=== PATIENT | female | born 1960 | race Caucasian/White ===

== ENCOUNTER 2020-08-09 17:50 | Emergency (ER) | payer MEDICARE, SELFPAY ==
[2020-08-09 17:51] VITALS: BP 187/94; PULSE 92; RESP 18; TEMP 36.4; O2SAT 97; BMI 34.7
--- NOTE | 2020-08-09 18:49 | ED.DCSUM_ITS ---
- ER Visit Summary Date of Service: 08/09/20 Chief Complaint: [Laceration to left middle finger] History of Present Illness: The patient is a 60 F [presents to the emergency department laceration to left middle finger that occurred this evening while she was cutting on a cutting board. Patient states that she cut part of the tip of her finger off with a knife. Patient is right-hand dominant. She is up-to-date on tetanus. She is not on any blood thinners.] Physical Examination: [Left hand-evaluation of the middle finger reveals a superficial skin avulsion of the distal tuft of the finger with no involvement of the nail. There are small amount of active bleeding. She is neurovascular intact.] Test Results: [None indicated] Emergency Department Course and Treatment: [Patient had already irrigated the wound with copious water. I attempted to dry the wound is well as I could. I used Gelfoam over the oozing wound and obtain good hemostasis. Clean dressing was applied.] Treatment Plan: [Follow-up with primary care physician for wound check in 3 to 5 days.] Disposition: [Discharged home in stable condition] Impression: [Left middle finger skin avulsion-Dermabond repair] This note was generated with [employer] dictation software. It may contain incorrect words, spelling, and punctuation that were not noted in review of the chart prior to signing ED Disposition - Plan for ED Patient: Referrals: Marcio Villalobos DO [Primary Care Provider] -
--- NOTE | 2020-08-09 18:51 | ED.DEP ---
ED Disposition - Plan for ED Patient: Instructions: ED AVULSION LACERATION Referrals: Marcio Villalobos DO [Primary Care Provider] - 3-5 Days
== END 2020-08-09 19:14 | disposition home or self-care (01) ==
LOC: ED 19:12
PROVIDERS: Emergency Provider Emergency Medicine; PCP Preventive Medicine Occupational Medicine
DX: S61.213A Laceration without foreign body of left middle finger without damage to nail, initial encounter (principal); W26.0XXA Contact with knife, initial encounter; Y93.G1 Activity, food preparation and clean up; Y92.000 Kitchen of unspecified non-institutional (private) residence as the place of occurrence of the external cause; Y99.8 Other external cause status
CPT/HCPCS: 99282

== ENCOUNTER 2020-09-04 11:30 | Emergency (ER) | payer MEDICARE, SELFPAY ==
[2020-09-04 11:31] VITALS: BP 146/114; PULSE 85; RESP 18; TEMP 36.4; O2SAT 97; BMI 34.0
--- NOTE | 2020-09-04 11:46 | RAD_ITS ---
STUDY: X-RAY - RIGHT KNEE REASON FOR EXAM: Right knee pain and lateral swelling, fall yesterday. TECHNIQUE: 4 view(s) of the knee. COMPARISON: None. FINDINGS: Normal visualized distal femur. There is a nondisplaced fracture of the neck of the fibula. Normal proximal tibiofibular articulation. Normal medial femorotibial compartment. Normal lateral femorotibial compartment. There are small marginal osteophytes without joint space narrowing of the patellofemoral articulation. There is a small joint effusion. RAD/Knee 4 or More Views IMPRESSION: Nondisplaced fracture of the neck of the fibula. Small joint effusion. Electronically Signed: Isaias May MD at 12:23 EST Tel , Service support ,
--- NOTE | 2020-09-04 11:46 | RAD_ITS ---
STUDY: X-RAY - RIGHT ANKLE REASON FOR EXAM: Increased pain and swelling at lateral ankle, fall yesterday. TECHNIQUE: 3 view(s) of the ankle. COMPARISON: None. 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 There is a small fibroxanthoma in the medial aspect of the distal fibular diametaphysis. Normal medial and lateral malleoli. Normal tibiotalar articulation and ankle mortise. There is a plantar calcaneal enthesophyte. The visualized subtalar, talonavicular, calcaneocuboid and tarsal articulations are normal. There is soft tissue swelling overlying the lateral malleolus. RAD/Ankle min 3 Views IMPRESSION: Soft tissue swelling. 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 Plantar calcaneal enthesophyte. No demonstrated fracture. Electronically Signed: Isaias May MD at 12:19 EST Tel , Service support ,
--- NOTE | 2020-09-04 12:42 | ED.VIS.INJ ---
History of Present Illness Chief Complaint: Lower Extremity Injury Informant: Patient Onset: Yesterday Mechanism/Context: Blunt Injury, Fall Quality of Pain: Dull, Aching, Throbbing Location: Right ankle and right knee Current Severity: Mild Maximum Severity: Severe Worsened by: Unable to bear weight Relieved by: Nothing Associated Symptoms: Loss of function, Inability to ambulate. Negative for: Parasthesias, Weakness, Loss of consciousness, Amnesia Narrative: Patient is 60-year-old woman who lost her balance. She fell backwards twisting her knee. She complains of pain over the knee and right ankle. She is unable to bear weight. She denies head trauma. Denies loss of conscious. Denies neck pain. She denies paresthesia, anesthesia or motor weakness. She is not on anticoagulant. She denies hip pain. She denies low back pain. Tetanus Immunization: 5-10 years Prior similar symptoms: No Recent Illness/Hospitalization: No - Past Medical History (1) Diabetes mellitus type 2 in nonobese Status: Chronic (2) Hyperlipidemia Status: Chronic (3) Migraine Status: Chronic Past Medical History - Allergies and Home Meds Allergies/Adverse Reactions: Allergies No Known Allergies Allergy (Verified 09/04/20 11:36) Primary Care Physician: Marcio Villalobos DO [Primary Care Provider] - Prior records reviewed: Yes Surgical History: - - History of hysterectomy 2 C-sections fracture left ankle Lives: Alone Smoking Status: Former smoker Alcohol: Rare Drugs: None Review of Systems General: Denies: Chills, Fever, Malaise, Subjective Eyes: Denies: Visual changes - bilaterally, Blurred Vision - bilaterally Cardiovascular: Denies: Chest pain Respiratory: Denies: Dyspnea Gastrointestinal: Denies: Nausea, Vomiting Genitourinary: Denies: Dysuria, Hematuria, Frequency Musculoskeletal: Reports: Swelling, Extremity Pain. Denies: Myalgias, Arthralgias, Neck pain, Back pain Skin: Denies: Rash, Wounds Neurological: Denies: Weakness, Parasthesia Hematologic: Denies: Easy bruising, Easy bleeding Physical Exam Vital Signs/Narrative: Vital Signs Temp Pulse Resp BP Pulse Ox 09/04/20 11:31 97.6 F L 85 18 146/114 H 97 Inital Vital Signs reviewed: Yes General: Well nourished, Well developed, Obese Head: Normocephalic, Atraumatic Eyes: Perrl, EOMI. Negative for: Pale conjunctiva, Scleral icterus Cardiovascular: Regular rate, Regular rhythm Respiratory: No distress Abdomen: Soft, Nontender, Nondistended, Normal bowel sounds, - - No pain to palpation of pelvis. Rectal: Deferred Back: Nontender Extremeties: There is soft tissue swelling with pain to palpation lateral and medial joint line. Varus and valgus stress testing causes pain laterally without laxity. She does have pain the patient over the fibular head. The patella is not ballotable. There may be a small effusion. Brandon's test was negative. Modified Hai's test was negative. The ankle was swollen. The pain placed over the lateral malleolus and over the anterior talofibular ligament. Is no pain ovation over the medial malleolus or deltoid ligament. No laxity with drawer testing. DP pulses palpable. Skin: Normal color, Trauma Neurological: Alert, Oriented x3, Cranial nerves II-XII grossly intact, Normal Strength, Normal Sensation. Negative for: Normal Gait - Glascow Coma Scale Eye Opening: Spontaneous Motor: Obeys Commands Verbal: Oriented Coma Scale Total: 15 Diagnostic/Tx/Re-eval Chest X-Ray - ED: Read by ED Physician Three-view x-ray of the right ankle reveals lateral soft tissue swelling. There is no evidence of fracture, subluxation or dislocation. There is no widening of the mortise. There is no fracture of the base of the fifth metatarsal. 4 view x-ray of the knee reveals a nondisplaced fracture of the neck of the fibula. There is no other abnormality noted. There is no obvious effusion. Patella is in proper position. There is no fracture of the tibial spines. - Medical Decision Making We will obtain x-ray of the ankle and knee to rule out sprain versus fracture and contusion versus fracture. Procedures - Lower Extremity Splints Lower Extremity Splint: Orthoglass, - - Posterior short leg Splint Fabrication: Fabricated ED Disposition - Plan for ED Patient: Disposition: Home or Assisted Living Diagnosis: Fracture of neck of right fibula, Sprain of anterior talofibular ligament of right ankle Instructions: ED Fracture Lower Extremity Referrals: Marcio Villalobos DO [Primary Care Provider] - Keaton Sosa DO [STAFF PHYSICIAN] - 3-5 Days Additional Instructions: Call office to be seen either tomorrow or Thursday. Nonweightbearing
[2020-09-04 12:53] VITALS: BP 153/87; PULSE 81; RESP 18; TEMP 36.6; O2SAT 96
--- NOTE | 2020-09-04 13:03 | RAD_ITS ---
STUDY: X-RAY - RIGHT ANKLE REASON FOR EXAM: Right ankle injury with right ankle pain and swelling, stress views to evaluate for syndesmotic disruption. TECHNIQUE: 5 radiographs of the ankle. COMPARISON: Earlier radiographs the same day. FINDINGS: There are fibroxanthomas in the distal tibia and distal fibula as previously described. Normal medial and lateral malleoli. Normal tibiotalar articulation and ankle mortise. There is no widening of the ankle mortise on stress views. There is soft tissue swelling overlying the lateral malleolus. RAD/Ankle min 3 Views IMPRESSION: No demonstrated widening of the ankle mortise on stress views. Electronically Signed: Isaias aMy MD at 14:07 EST Tel , Service support ,
[2020-09-04] MEDS: HYDROcodone Bitartrate/Apap 5/325 Tablet PO (13:53)
[2020-09-04 16:05] VITALS: BP 108/64; PULSE 73; RESP 18; O2SAT 96
== END 2020-09-04 16:06 | disposition home or self-care (01) ==
PROVIDERS: Emergency Provider Emergency Medicine; PCP Preventive Medicine Occupational Medicine
DX: S82.491A Other fracture of shaft of right fibula, initial encounter for closed fracture (principal); S93.491A Sprain of other ligament of right ankle, initial encounter; E11.9 Type 2 diabetes mellitus without complications; E78.5 Hyperlipidemia, unspecified; E66.9 Obesity, unspecified; Z79.84 Long term (current) use of oral hypoglycemic drugs; Z79.899 Other long term (current) drug therapy; Z87.891 Personal history of nicotine dependence; W18.30XA Fall on same level, unspecified, initial encounter; Y93.89 Activity, other specified; Y92.89 Other specified places as the place of occurrence of the external cause; Y99.8 Other external cause status
CPT/HCPCS: 29515; 73564; 73610; 99282

== ENCOUNTER → 2020-09-22 08:13 | Outpatient (CLI) | payer MEDICARE, SELFPAY ==
[2020-09-04 11:31] VITALS: BMI 34.0
--- NOTE | 2020-09-22 08:15 | MRI_ITS ---
STUDY: MRI LOWER EXTREMITY RIGHT TIBIA/FIBULA WITH AND WITHOUT CONTRAST REASON FOR EXAM: Female, 60 years old. eval for tumor/cyst, pain f/u to abnormal xray TECHNIQUE: Standardized fat and water weighted pulse sequences were obtained in all 3 orthogonal planes, post contrast administration. IV 18cc Dotarem was administered for the contrast portion of the examination. COMPARISON: X-ray September 04, 2020 FINDINGS: Marrow edema of the posterior medial and lateral tibial plateau. Marrow edema and enhancement of the proximal fibula with nondisplaced fracture at the neck of the fibula. There is adjacent muscular edema and soft tissue swelling. 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 There is marrow edema of the distal tibia adjacent to the tibiofibular syndesmosis. There is marrow edema of the medial and lateral talar dome. Normal posterior calf compartments, with normal muscles, crural fascia and intermuscular septa. There is tendinosis with partial split tear of the peroneal brevis, series 6 image 32/36 and 33/36. There are joint effusions at the knee and ankle. There is no solid, cystic or lipomatous mass lesion of the subcutis adipose space. MRI/Lower Ext No Joint W/WO Cont IMPRESSION: Fracture of the proximal fibula. Bone bruising of the proximal and distal tibia and talar dome. 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 Joint effusions of the knee and ankle. Electronically Signed: Ramakrishna Hamilton MD at 11:51 EST , Service support ,
--- NOTE | 2020-09-22 08:19 | MRI_ITS ---
STUDY: MRI RIGHT KNEE REASON FOR EXAM: Female, 60 years old. Recent injury. Pain and swelling. TECHNIQUE: Standardized fat and water weighted pulse sequences were obtained in all 3 orthogonal planes. COMPARISON: X-ray September 04, 2020 FINDINGS: Marrow edema of the posterior medial and lateral tibial plateau. Marrow edema of the proximal fibula with nondisplaced fracture at the neck of the fibula. There is adjacent muscular edema and soft tissue swelling. Normal medial meniscus. Normal hyaline cartilage of the medial femorotibial compartment. Normal medial femoral condyle. Normal medial collateral ligamentous complex (MCL). Normal distal semimembranosus, gracilis and semitendinosus tendons. Normal lateral meniscus. Normal hyaline cartilage of the lateral femorotibial compartment. Normal lateral femoral condyle. Normal proximal tibiofibular articulation. Normal lateral collateral (fibular) ligament. Normal popliteus tendon. Normal biceps femoris tendon. Normal anterior cruciate ligament (ACL). Normal posterior cruciate ligament (PCL). There is arthrosis of the patellofemoral articulation. There is diffuse, greater than 50% thickness articular cartilage loss of the patellofemoral compartment. Normal medial and lateral patellar retinaculum. Normal quadriceps tendon. Normal patellar tendon. Normal Hoffa''s fat pad. There is a moderate volume joint effusion. The soft tissues are unremarkable. The otherwise visualized osseous structures are unremarkable. MRI/Lower Ext Joint Only (Routine) IMPRESSION: Fibula fracture. Bone bruising of the proximal tibia. No ligamentous or meniscal tear. Patellofemoral degenerative change. Joint effusion. Electronically Signed: Ramakrishna Hamilton MD at 11:14 EST , Service support ,
[2020-09-22 13:56] LABS: EGFR FINGERSTICK > 60.0000 mL/min (>60)
== END ==
PROVIDERS: PCP Preventive Medicine Occupational Medicine; Referring Provider Orthopaedic Surgery; Visit Provider Orthopaedic Surgery
DX: S93.439A Sprain of tibiofibular ligament of unspecified ankle, initial encounter (principal); M23.91 Unspecified internal derangement of right knee
CPT/HCPCS: 73720; 73721; A9575

== ENCOUNTER → 2021-06-05 | Outpatient (CLI) | payer MEDICARE, SELFPAY ==
[2021-06-05 16:45] LABS: Pathologist Comment May follow
[2021-06-05 18:52] LABS: Synovial Fld Mononuclear WBC % 9.1 %; Synovial Fld Polynuclear WBC # 6.067 10^3/uL; Synovial Fld Polynuclear WBC % 90.9 %
[2021-06-05 18:54] LABS: RBC /Synovial Fluid 0.007 10^6/uL (0)
[2021-06-05 20:00] LABS: AUTO B FLUID DILUENT BKGD CT WBC <0.1 RBC <0.01 (W<.1,R<.01)
[2021-06-05 20:01] LABS: Source- Body Fluid SYNOVIAL
[2021-06-05 20:02] LABS: Appearance /Synovial Fluid Turbid (CLEAR); Color / Synovial Fluid Straw (Pale Yellow)
[2021-06-05 20:33] LABS: Body Fluid QC Type(s) BF2Q,BF3Q; Monocyte /Synovial Fluid 5 %; Neutrophil 95 % (0-25)
[2021-06-06 11:44] LABS: Pathologist Review Reviewed
[2021-06-07 21:10] LABS: GLUCOSE, SYNOVIAL FLUID 96 mg/dL (.); PROTEIN, SYNOVIAL FLUID 4.7 g/dL (.)
== END | disposition home or self-care (01) ==
PROVIDERS: Visit Provider Orthopaedic Surgery
DX: E11.9 Type 2 diabetes mellitus without complications (principal); M25.461 Effusion, right knee
CPT/HCPCS: 82945; 84157; 87070; 87075; 87205; 89050; 89051; 89060

== ENCOUNTER → 2021-10-16 15:13 | Outpatient (CLI) | payer MEDICARE, SELFPAY ==
[2021-10-16 16:37] LABS: Absolute Lymphocyte Count 2.08 X10^3/uL (0.83-4.51); Absolute Neutrophil Count 7.7 X10^3/uL (2.0-7.7); Basophil# 0.05 X10^3/uL; Basophil% 0.5 % (0-1); Eosinophil# 0.11 X10^3/uL; Hemoglobin 14.9 g/dL (12.0-15.0); Lymphocyte # 2.08 X10^3/ul (0.83-4.51); Lymphocyte % 19.7 % (19-41); Mean Corp Hgb Conc 33.1 g/dL (32-36); Mean Corpuscular Hgb 29.8 pg (27.0-32.0); Monocyte# 0.66 X10^3/uL; Monocyte% 6.2 % (0-10); NRBC Flagged by Analyzer 0 % (0-5); Neutrophil # 7.65 X10^3/uL (2.7-7.7); Neutrophil % 72.3 % (47-70); Platelet Count 298 K/mm3 (150-450); RBC Distribution Width CV 13.2 % (11.6-14.6); RBC Distribution Width SD 43.6 fl (35.1-43.9); White Blood Count 10.6 K/mm3 (4.4-11.0)
[2021-10-16 16:50] LABS: Erythrocyte Sedimentation Rate 21 mm/hr (0-30)
== END ==
PROVIDERS: PCP Preventive Medicine Occupational Medicine; Visit Provider Physician Assistant
DX: M94.261 Chondromalacia, right knee (principal); M17.11 Unilateral primary osteoarthritis, right knee
CPT/HCPCS: 36415; 85025; 85652; 86140

== ENCOUNTER 2021-11-06 14:54 | Outpatient (CLI) | payer MEDICARE, SELFPAY ==
[2021-11-06 18:09] LABS: Absolute Lymphocyte Count 2.24 X10^3/uL (0.83-4.51); Absolute Neutrophil Count 7.5 X10^3/uL (2.0-7.7); Basophil# 0.07 X10^3/uL; Basophil% 0.6 % (0-1); Eosinophil# 0.09 X10^3/uL; Eosinophils% 0.8 % (0-5); Hemoglobin 14.4 g/dL (12.0-15.0); Lymphocyte # 2.24 X10^3/ul (0.83-4.51); Lymphocyte % 20.7 % (19-41); Mean Corpuscular Hgb 28.7 pg (27.0-32.0); Mean Corpuscular Volume 89.6 fL (81-99); Mean Platelet Vol. 10.1 fl (6.2-12.0); Monocyte# 0.87 X10^3/uL; NRBC Flagged by Analyzer 0 % (0-5); Neutrophil # 7.53 X10^3/uL (2.7-7.7); Neutrophil % 69.5 % (47-70); Platelet Count 340 K/mm3 (150-450); RBC Distribution Width CV 13.2 % (11.6-14.6); RBC Distribution Width SD 43.1 fl (35.1-43.9); Red Blood Count 5.02 M/mm3 (4.2-5.4); White Blood Count 10.8 K/mm3 (4.4-11.0)
[2021-11-06 18:26] LABS: Erythrocyte Sedimentation Rate 28 mm/hr (0-30)
[2021-11-06 18:33] LABS: Rheumatoid Factor < 10.0 IU/mL (<15); Uric Acid 2.9 mg/dL (2.6-6.0)
[2021-11-08 19:53] LABS: ANTINUCLEAR ANTIBODIES DIRECT Negative (Negative)
== END 2021-11-06 23:59 | disposition short-term general hospital (02) ==
LOC: MTLAB 14:55
PROVIDERS: PCP Preventive Medicine Occupational Medicine; Referring Provider Orthopaedic Surgery; Visit Provider Orthopaedic Surgery
DX: M17.11 Unilateral primary osteoarthritis, right knee (principal)
CPT/HCPCS: 36415; 84550; 85025; 85652; 86038; 86140; 86431

== ENCOUNTER → 2022-12-17 | Outpatient (CLI) | payer MEDICARE, SELFPAY ==
[2022-12-17 15:15] LABS: Pathologist Comment May follow
[2022-12-17 20:13] LABS: AUTO B FLUID DILUENT BKGD CT WBC <0.1 RBC <0.01 (W<.1,R<.01); CRYSTALS, BODY FLUID NO CRYSTALS SEEN; Monocyte /Synovial Fluid 11 %; Neutrophil 89 % (0-25)
[2022-12-17 20:14] LABS: Appearance /Synovial Fluid Cloudy (CLEAR); Color / Synovial Fluid Yellow (Pale Yellow); Source- Body Fluid SYNOVIAL
[2022-12-17 20:19] LABS: RBC /Synovial Fluid 244 /mm3 (0)
[2022-12-17 20:21] LABS: Synovial Fld Mononuclear WBC # 4.264 10^3/ul; Synovial Fld Mononuclear WBC % 0.5 %; Synovial Fld Polynuclear WBC # 30.712 10^3/uL; Synovial Fld Polynuclear WBC % 87.9 %
[2022-12-17 20:22] LABS: Body Fluid QC Type(s) BF1Q
[2022-12-18 12:48] LABS: Pathologist Review Reviewed
== END | disposition home or self-care (01) ==
LOC: LABSPEC 15:09
PROVIDERS: PCP Preventive Medicine Occupational Medicine; Visit Provider Orthopaedic Surgery
DX: M17.11 Unilateral primary osteoarthritis, right knee (principal); M25.461 Effusion, right knee
CPT/HCPCS: 87015; 87070; 87075; 87101; 87116; 87205; 87206; 89050; 89051; 89060

== ENCOUNTER 2023-03-13 07:57 | Emergency (ER) | payer MEDICARE, SELFPAY ==
[2023-03-13 07:58] VITALS: BP 162/95; PULSE 99; RESP 16; TEMP 36.4; O2SAT 97; BMI 34.0
[2023-03-13 08:00] VITALS: BP 117/64; PULSE 75; RESP 16; O2SAT 96
--- NOTE | 2023-03-13 08:47 | EKG12_ITS ---
Test Reason : BACK PAIN Blood Pressure : / mmHG Vent. Rate : 071 BPM Atrial Rate : 241 BPM P-R Int : 000 ms QRS Dur : 076 ms QT Int : 396 ms P-R-T Axes : 000 051 058 degrees QTc Int : 430 ms Normal sinus rhythm Low voltage QRS Borderline ECG Confirmed by BARBARA PALMER, CHRISTIN ([id number]), supervising editor news reel LALO CHAN ([id number]) on 03/17/2023 10:31:46 AM Referred By: Confirmed By:CHRISTIN JIMENEZ MD
--- NOTE | 2023-03-13 08:47 | RAD_ITS ---
STUDY: X-RAY CHEST REASON FOR EXAM: Female, 62 years old. Chest pain TECHNIQUE: Frontal (inspiratory and expiratory) and lateral views of the chest COMPARISON: None. FINDINGS: The lungs are clear. There are no pleural effusions. There is no pneumothorax. The heart is normal in size. The visualized osseous structures are within normal limits. RAD/Chest 3 View IMPRESSION: Negative. Electronically Signed: Geremias Kelley MD at 9:37 EDT ,
--- NOTE | 2023-03-13 10:12 | EDS_ITS ---
HPI History of Present Illness Chief Complaint: Other, Pain/Inj Narrative Narrative: Patient is a 62-year-old female who is presenting to the ER with chief complaint of right lower thoracic pain that started Thursday morning. Patient does not recall Thursday is doing any type of heavy lifting, twisting or turning. Patient has no anterior chest pain or tightness or pressure. Patient has no shortness of breath, she does have pain with deep inspiration, trunk twisting, turning or rotation. Patient has no abdominal pain, nausea or vomiting. Patient quit smoking 1 month ago, patient was less than a pack a day smoker for approximately 35 years. No recent traveling. Patient has been having chronic right knee pain. Patient is still mobile at home, she has not been significantly sedentary for the past several weeks or months, but her range of motion and gait is limited secondary right knee pain. Patient has been seeing orthopedic surgery and has had several different joint effusions drained and cortisone injections placed by orthopedic surgeons. Patient has no redness to the right knee, no new swelling. No unilateral swelling to bilateral lower extremities. Patient has no other PE risk factors. Patient has been using heat last couple days, she has taken nothing for pain for her right lower back, she intermittently will take an NSAID for her right knee pain. No other acute complaints at this time [facility] Medical History (Updated 03/13/23 @ 10:[address] Desean Cortes DO) Diabetes hx of left lower leg surgery Hypercholesteremia Home Medications alprazolam 0.25 mg tablet 1 mg PO 4X/DAY PRN 09/26/20 [History Last Taken Unknown] atorvastatin 40 mg tablet 40 mg PO DAILY 09/26/20 [History Last Taken Unknown] eepccnyvpx-zabzzreaqdzks-suvwnmwv 50 mg-325 mg-40 mg tablet 1 tab PO PRN 09/26/20 [History Last Taken Unknown] metformin 1,000 mg tablet 500 mg PO BIDCM 09/26/20 [History Last Taken Unknown] simvastatin 40 mg tablet mg PO 09/26/20 [History Last Taken Unknown] sumatriptan succinate 25 mg tablet 25 mg PO PRN 09/26/20 [History Last Taken Unknown] indomethacin 50 mg capsule 50 mg PO TID PRN knee pain #30 caps 06/05/21 [Rx Last Taken Unknown] promethazine 25 mg tablet 25 mg PO Q6H PRN PRN Nausea 06/07/21 [History Last Taken Unknown] methocarbamol 500 mg tablet 500 mg PO Q8H PRN muscle pain #10 tabs 03/13/23 [Rx Last Taken Unknown] Allergy/AdvReac Type Severity Reaction Status Date / Time No Known Allergies Allergy Verified 03/13/23 08:00 Social History Smoking Status: Never smoker ROS ROS ED ROS Narrative REVIEW OF SYSTEMS: Unless otherwise stated in this report the patient's positive and negative responses for review of systems for constitutional, eyes, ENT, card iovascular, respiratory, gastrointestinal, neurological, , musculoskeletal, and integument systems and related systems to the presenting problem are either stated in the history of present illness or were not pertinent or were negative for the symptoms and/or complaints related to the presenting medical problem. EXAM Physical Exam Narrative Exam Narrative: Vital signs reviewed and patient is not hypoxic. General: The patient appears well and in no apparent distress. Patient is resting comfortably on cart. Not toxic, lethargic, or listless. Skin: Warm, dry, no pallor noted. There is no rash noted. Head: Normocephalic, atraumatic Eye: Normal conjunctiva, no drainage, EOMI. PERRL. Ears, Nose, Mouth, and Throat: oral mucosa is moist. Nares patent. Mouth without vesicles. Cardiovascular: Regular Rate and Rhythm, no murmurs, gallops, or rubs. Respiratory: Patient is in no distress, no accessory muscle use, lungs are clear to auscultation, no wheezing, rales or rhonchi Back: Patient has very reproducible moderate to severe tenderness palpation to the right lower anterior parathoracic area, no rash; along approximately T10- T12. No crepitus. Equal chest rise bilateral. No rash. Patient feels the pain is superficial right we are pushing on the soft tissue above the ribs. Patient has no midline thoracic tenderness palpation, no lateral chest wall tenderness palpation. Deep palpation to right anterior chest wall, does not hurt the right posterior chest wall. Equal breath sounds bilateral. Otherwise non-tender, no CVA tenderness bilaterally to percussion. NO CTLS midline or paraspinal tenderness to palpation. GI: Soft, no tenderness to palpation, no masses appreciated. No rebound, guarding, or rigidity noted. Musculoskeletal: The patient has full range of motion of all extremities and joints with no difficulty. Patient has no motor, no sensory deficits. Neurological: A&O x4, normal speech, no focal neurological deficits. Psychiatric: Cooperative Const Vital Signs: 03/13/23 07:58 03/13/23 08:00 03/13/23 08:00 Temperature 97.6 F L Temperature Source Temporal Pulse Rate 99 75 Respiratory Rate 16 16 Respiratory Effort Normal Non-Labored Respiratory Pattern Normal Blood Pressure 162/95 H 117/64 Blood Pressure Mean 117 81 Pulse Ox 97 96 Oxygen Delivery Method Room Air Room Air MDM MDM MDM Narrative Medical decision making narrative: Patient EKG shows no acute findings. Patient had a lateral and PA chest x-ray done with inspiratory expiratory films. Patient has no signs of pneumothorax. No effusion, no pneumonia, no acute findings. Patient will follow-up with PCP for additional testing or physical therapy if needed. Education was to not use anymore heat, start using ice, alternate Tylenol and anti-inflammatories. Patient is aware this could hurt for 2 or 3 weeks, any other acute changes return back to the ER. Education PE was discussed at bedside, patient starts having more pain, increasing shortness of breath, especially with exertion, patient will return to the ER for further evaluation. Patient understands this very clearly, no questions at discharge Radiography Diagnostic Testing: Clinical Impression(s) from Imaging Studies Chest X-Ray 03/13/23 08:47 IMPRESSION: Negative. Electronically Signed: Geremias Kelley MD at 9:37 EDT Reading Location ID and State: [facility] / MD Tel , Service support , EKG Initial EKG: Attestation: I personally reviewed and interpreted this EKG as follows: Comments: EKG interpretation. Baseline normal sinus rhythm at 71 beats a minute. Normal axis deviation. No acute ST elevation, no acute ectopy. QTc of 430. Possible sinus arrhythmia. Discharge Plan Triage Chief Complaint: Other, Pain/Inj ED Provider: Desean Cortes Dx/Rx/DC Orders Clinical Impression: Right-sided thoracic back pain Instructions: ED Back Care Tips, ED Back Pain (Acute or Chronic), ED Back Contusion, ED Back and Neck Pain, General Prescriptions: New methocarbamol 500 mg tablet 500 mg PO Q8H PRN (Reason: muscle pain) Qty: 10 0RF No Action simvastatin 40 mg tablet PO sumatriptan succinate 25 mg tablet 25 mg PO PRN Label Comments: TAKE 1 TABLET with onset of headache may repeat in 2 (TWO) hours NEEDED rjnmbdqiro-asndfyeponzzl-attd 50-325-40 mg tablet 1 tab PO PRN indomethacin 50 mg capsule 50 mg PO TID PRN (Reason: knee pain) Qty: 30 0RF Rx Instructions: administer with food or milk, do not take in conjuction with any other NSAID including diclofenac or Mobic . Tylenol is ok. atorvastatin 40 mg tablet 40 mg PO DAILY Label Comments: cholesterol metformin 1,000 mg tablet 500 mg PO BIDCM promethazine 25 mg tablet 25 mg PO Q6H PRN PRN (Reason: Nausea) alprazolam 0.25 mg tablet 1 mg PO 4X/DAY PRN Primary Care Provider: Marcio Villalobos Referrals: Marcio Villalobos DO [Primary Care Provider] - Activity Restrictions/Additional Instructions: Ice 20 minutes on, 20 minutes off. Do not use heat. Alternate Tylenol and anti-inflammatories as needed for pain. Stretching exercises as shown at bedside 3 times a day for your lower thoracic spine. If pain worsens, extreme shortness of breath from 1 room to another, significant chest pain, or any other acute concerns, return to the ER Disposition Disposition: Home, Self Care
[2023-03-13 10:16] VITALS: BP 116/59; PULSE 71
== END 2023-03-13 10:23 | disposition home or self-care (01) ==
PROVIDERS: Emergency Provider Emergency Medicine; PCP Preventive Medicine Occupational Medicine; Visit Provider Emergency Medicine
DX: M54.6 Pain in thoracic spine (principal); E11.9 Type 2 diabetes mellitus without complications; M25.561 Pain in right knee; E78.00 Pure hypercholesterolemia, unspecified; G89.29 Other chronic pain; Z87.891 Personal history of nicotine dependence
CPT/HCPCS: 71047; 93005; 99282

== ENCOUNTER → 2023-06-25 | Outpatient (CLI) | payer MEDICARE, SELFPAY ==
[2023-06-25 15:21] LABS: Absolute Lymphocyte Count 2.59 X10^3/uL (0.83-4.51); Absolute Neutrophil Count 8.3 X10^3/uL (2.0-7.7); Basophil# 0.05 X10^3/uL; Basophil% 0.4 % (0-1); Eosinophil# 0.09 X10^3/uL; Eosinophils% 0.8 % (0-5); Hematocrit 46.2 % (37-47); Hemoglobin 15.2 g/dL (12.0-15.0); Lymphocyte # 2.59 X10^3/ul (0.83-4.51); Lymphocyte % 21.8 % (19-41); Mean Corp Hgb Conc 32.9 g/dL (32-36); Mean Corpuscular Hgb 30.5 pg (27.0-32.0); Mean Corpuscular Volume 92.6 fL (81-99); Monocyte# 0.81 X10^3/uL; Monocyte% 6.8 % (0-10); NRBC Flagged by Analyzer 0 % (0-5); Neutrophil # 8.31 X10^3/uL (2.7-7.7); Neutrophil % 69.9 % (47-70); Platelet Count 329 K/mm3 (150-450); RBC Distribution Width SD 47.4 fl (35.1-43.9); Red Blood Count 4.99 M/mm3 (4.2-5.4); White Blood Count 11.9 K/mm3 (4.4-11.0)
[2023-06-25 15:28] LABS: Erythrocyte Sedimentation Rate 23 mm/hr (0-30)
[2023-06-25 16:08] LABS: Synovial Fld Mononuclear WBC # 3.177 10^3/ul; Synovial Fld Mononuclear WBC % 10.8 %; Synovial Fld Polynuclear WBC % 89.2 %
[2023-06-25 16:21] LABS: RBC /Synovial Fluid 0.008 10^6/uL (0)
[2023-06-25 17:07] LABS: AUTO B FLUID DILUENT BKGD CT WBC <0.1 RBC <0.01 (W<.1,R<.01); CRYSTALS, BODY FLUID NO CRYSTALS SEEN; Lymph 1 %; Monocyte /Synovial Fluid 4 %; Neutrophil 95 % (0-25)
[2023-06-25 17:14] LABS: Source- Body Fluid SYNOVIAL
[2023-06-25 17:15] LABS: Appearance /Synovial Fluid Cloudy (CLEAR); Body Fluid QC Type(s) BF1Q,BF2Q; Color / Synovial Fluid Yellow (Pale Yellow)
[2023-06-26 13:21] LABS: Pathologist Review Reviewed
[2023-06-26 13:22] LABS: Pathologist Comment Reviewed
== END | disposition home or self-care (01) ==
LOC: LAB 15:02
PROVIDERS: PCP Preventive Medicine Occupational Medicine; Referring Provider Orthopaedic Surgery; Visit Provider Orthopaedic Surgery
DX: M17.11 Unilateral primary osteoarthritis, right knee (principal); M25.461 Effusion, right knee
CPT/HCPCS: 36415; 85025; 85652; 86140; 87015; 87070; 87075; 87101; 87116; 87205; 87206; 89050; 89051; 89060

== ENCOUNTER 2024-08-24 09:57 | Emergency (ER) | payer MEDICARE, SELFPAY ==
[2024-08-24 09:57] VITALS: BP 153/118; PULSE 66; RESP 18; TEMP 36.4; O2SAT 100; BMI 32.5
[2024-08-24 10:35] LABS: Absolute Lymphocyte Count 1.99 X10^3/uL (0.83-4.51); Absolute Neutrophil Count 6.8 X10^3/uL (2.0-7.7); Basophil# 0.06 X10^3/uL; Basophil% 0.6 % (0-1); Eosinophil# 0.11 X10^3/uL; Eosinophils% 1.1 % (0-5); Hemoglobin 14.8 g/dL (12.0-15.0); Lymphocyte # 1.99 X10^3/ul (0.83-4.51); Lymphocyte % 20.7 % (19-41); Mean Corp Hgb Conc 33.6 g/dL (32-36); Mean Corpuscular Hgb 30.3 pg (27.0-32.0); Mean Corpuscular Volume 90.2 fL (81-99); Mean Platelet Vol. 9.8 fl (6.2-12.0); Monocyte# 0.66 X10^3/uL; Monocyte% 6.9 % (0-10); NRBC Flagged by Analyzer 0 % (0-5); Neutrophil # 6.75 X10^3/uL (2.7-7.7); Neutrophil % 70.4 % (47-70); Platelet Count 260 K/mm3 (150-450); RBC Distribution Width CV 12.9 % (11.6-14.6); RBC Distribution Width SD 42.9 fl (35.1-43.9); Red Blood Count 4.88 M/mm3 (4.2-5.4); White Blood Count 9.6 K/mm3 (4.4-11.0)
[2024-08-24 10:46] LABS: Anion Gap 3 (5-15); BUN 21 mg/dL (7-18); BUN/Creat Ratio 39.3 RATIO (10-20); Calcium,Total 9.1 mg/dL (8.5-10.1); Chloride 108 mmol/L (98-107); Creatinine, Serum 0.53 mg/dL (0.55-1.02); EST Glomerular Filtration Rate 122 mL/min (>60); Est Glom Filt Rate - Afr Amer 148 mL/min (>60); Estimated Creatinine Clearance 74.44 ml/min; Glucose 117 mg/dL (74-106); Potassium 4.1 mmol/L (3.5-5.1); Sodium Level 138 mmol/L (136-145)
[2024-08-24 11:57] VITALS: BP 152/61; PULSE 61
[2024-08-24 13:00] VITALS: BP 145/77
[2024-08-24] MEDS: Meclizine HCl 25 MG Tablet PO (16:44)
[2024-08-24 16:49] VITALS: BP 144/78; PULSE 79; RESP 22; TEMP 36.6; O2SAT 100
== END 2024-08-24 16:51 | disposition home or self-care (01) ==
PROVIDERS: Emergency Provider Emergency Medicine; PCP Preventive Medicine Occupational Medicine; Visit Provider Emergency Medicine
DX: R42 Dizziness and giddiness (principal); E11.9 Type 2 diabetes mellitus without complications; M54.12 Radiculopathy, cervical region; E55.9 Vitamin D deficiency, unspecified; F32.9 Major depressive disorder, single episode, unspecified; F41.9 Anxiety disorder, unspecified; E78.00 Pure hypercholesterolemia, unspecified; M19.90 Unspecified osteoarthritis, unspecified site; F17.210 Nicotine dependence, cigarettes, uncomplicated; J45.909 Unspecified asthma, uncomplicated; Z87.828 Personal history of other (healed) physical injury and trauma; Z79.84 Long term (current) use of oral hypoglycemic drugs; Z79.899 Other long term (current) drug therapy
CPT/HCPCS: 70496; 70498; 70551; 72141; 80048; 85025; 99284; Q9967

== ENCOUNTER → 2025-06-28 | Outpatient (CLI) | payer MEDICARE, SELFPAY ==
[2025-06-28 14:06] LABS: Hematocrit 44.4 % (37-47); Hemoglobin 14.8 g/dL (12.0-15.0); Mean Corp Hgb Conc 33.3 g/dL (32-36); Mean Corpuscular Volume 91.7 fL (81-99); Mean Platelet Vol. 9.9 fl (6.2-12.0); Platelet Count 230 K/mm3 (150-450); RBC Distribution Width CV 13.6 % (11.6-14.6); RBC Distribution Width SD 46.0 fl (35.1-43.9); Red Blood Count 4.84 M/mm3 (4.2-5.4); White Blood Count 7.1 K/mm3 (4.4-11.0)
[2025-06-28 15:16] LABS: AST(SGOT) 17 U/L (<=31); Alanine Aminotransfer ALT/SGPT 14 U/L (<=34); Albumin, Serum 4.0 g/dL (3.4-4.8); Alkaline Phosphatase 72 U/L (35-104); Anion Gap 9 (5-15); BUN 19 mg/dL (4-19); BUN/Creat Ratio 27.6 RATIO (10-20); Calcium,Total 9.1 mg/dL (7.6-11.0); Carbon Dioxide 25.8 mmol/L (21.0-32.0); Chloride 106 mmol/L (98-108); Cholesterol 250 mg/dL (<=200); Globulin 2.5 g/dL (2.2-4.2); Glucose 117 mg/dL (70-99); Low Density Lipoprotein Calc. 166 mg/dL; Potassium 4.2 mmol/L (3.3-5.1); Triglycerides 66 mg/dL; Very Low Density Lipoprotein 13 mg/dL (5-40); Vitamin D,25 Hydroxy 23.6 ng/mL (30-100); cholesterol:hdl ratio screen 3.55
[2025-06-28 15:55] LABS: Creatinine, Urine (random) 109.00 mg/dL (28.00-217.00); Microalbumin,Random Urine < 12.0 mg/L (<20 mg/L)
== END | disposition home or self-care (01) ==
LOC: LAB 13:42
PROVIDERS: PCP Nurse Practitioner Family; Referring Provider Nurse Practitioner Family; Visit Provider Nurse Practitioner Family
DX: E78.1 Pure hyperglyceridemia (principal); E11.9 Type 2 diabetes mellitus without complications; E55.9 Vitamin D deficiency, unspecified; E27.40 Unspecified adrenocortical insufficiency
CPT/HCPCS: 36415; 80053; 80061; 82043; 82306; 82570; 83036; 85027